=== PATIENT | female | born 1940 | race African-American/Black ===

== ENCOUNTER 2023-11-10 18:33 | Inpatient (IN) | payer OTHER ==
[~2023-11-10] VITALS: Ht 167.6 cm; Wt 72.2 kg
[2023-11-10] MEDS: SODIUM CHLORIDE 0.9% 1,000 ML IV ONE (03:40)
[2023-11-10 19:22] LABS: Basophils # (auto) 0 10 ^3/uL (0-0.2); Basophils % (auto) 0.5 % (0.0-2.0); Eosinophils # (auto) 0.1 10 ^3/uL (0-0.8); Eosinophils % (auto) 1.2 % (0.0-7.0); Hemoglobin 9.2 g/dL (12.2-16.2); Lymphocytes # (auto) 1.7 10 ^3/uL (0.4-5.4); Lymphocytes % (auto) 28.3 % (10.0-50.0); Mean Corpuscular Hemoglobin 31.3 pg (28.0-32.0); Mean Corpuscular Hgb Conc. 33.9 g/dL (32.0-36.0); Mean Corpuscular Volume 92.3 fL (80.0-100.0); Monocytes # (auto) 0.5 10 ^3/uL (0-1.3); Monocytes % (auto) 7.8 % (0.0-12.0); Neutrophils # (auto) 3.6 10 ^3/uL (1.6-8.6); Neutrophils % (auto) 62.2 % (37.0-80.0); Red Blood Cells 2.93 10^6/uL (4.0-5.20); Red Cell Distribution Width 12.9 % (11.8-14.3); White Blood Cell 5.8 10^3/uL (4.4-10.8)
[2023-11-10 19:37] LABS: INR 1.03 (0.9-1.15); Partial Thromboplastin Time 26.3 SEC (24.5-34.5); Prothrombin Time 10.9 sec (9.3-11.8)
[2023-11-10 19:41] LABS: Alanine Aminotransferase 14 U/L (7-40); Albumin 4.4 g/dL (3.2-4.8); Alkaline Phosphatase 51 U/L (46-116); Anion Gap 13 (5-15); Aspartate Aminotransferase 21 U/L (13-40); BUN/Creatinine Ratio 24.4 (10.0-20.0); Bilirubin, Total 0.3 mg/dL (0.2-1.0); Blood Urea Nitrogen 67 mg/dL (9-23); Calcium 9.9 mg/dL (8.5-10.1); Carbon Dioxide 23 mmol/L (20-30); Chloride 91 mmol/L (98-107); Glucose 91 mg/dL (74-106); Magnesium 1.7 mg/dL (1.6-2.6); Potassium 3.6 mmol/L (3.5-5.1); Sodium 127 mmol/L (136-145); Total Protein 6.9 g/dL (5.7-8.2)
[2023-11-10] MEDS ORDERED: DOCUSATE SOD 100 MG CAP PO PRN (21:00)
[2023-11-10] MEDS ORDERED: HYDROcodone-ACET 5/325MG TAB PO PRN (21:00)
[2023-11-10] MEDS ORDERED: ACETAMINOPHEN 325 MG TAB PO PRN (21:00)
[2023-11-10] MEDS ORDERED: MORPHINE SULFATE INJ 2 MG/ml SYRG IV PRN (22:15)
[2023-11-10] MEDS ORDERED: NITROGLYCERIN 0.4 MG SL TAB SL PRN (22:15)
[2023-11-11] VITALS (7 sets, daily range): BP systolic 171–189; BP diastolic 57–74; PULSE 63–96; RESP 17–19; TEMP 97.7–98.3; O2SAT 96–99
[2023-11-11] MEDS: SODIUM CHLORIDE 0.9% 500 ML IVB ONE (01:53)
[2023-11-11] MEDS: ATORVASTATIN 20 MG TAB PO SCH (05:22)
[2023-11-11] MEDS: DONEPEZIL HYDROCHLORIDE 5 MG TAB PO SCH (05:22)
[2023-11-11] MEDS: SODIUM CHLORIDE 0.9% 1,000 ML IV SCH (05:22)
[2023-11-11 06:01] LABS: Basophils # (auto) 0 10 ^3/uL (0-0.2); Basophils % (auto) 0.3 % (0.0-2.0); Eosinophils # (auto) 0 10 ^3/uL (0-0.8); Hematocrit 27.6 % (36.0-46.0); Hemoglobin 9.4 g/dL (12.2-16.2); Lymphocytes # (auto) 0.6 10 ^3/uL (0.4-5.4); Lymphocytes % (auto) 7.8 % (10.0-50.0); Mean Corpuscular Hemoglobin 31.6 pg (28.0-32.0); Mean Corpuscular Volume 93.1 fL (80.0-100.0); Monocytes # (auto) 0.4 10 ^3/uL (0-1.3); Monocytes % (auto) 5.8 % (0.0-12.0); Neutrophils # (auto) 6.4 10 ^3/uL (1.6-8.6); Neutrophils % (auto) 86.1 % (37.0-80.0); Red Blood Cells 2.96 10^6/uL (4.0-5.20); Red Cell Distribution Width 13.3 % (11.8-14.3); White Blood Cell 7.4 10^3/uL (4.4-10.8)
[2023-11-11 06:03] LABS: Alanine Aminotransferase 12 U/L (7-40); Albumin 4.5 g/dL (3.2-4.8); Alkaline Phosphatase 48 U/L (46-116); Anion Gap 16 (5-15); Aspartate Aminotransferase 23 U/L (13-40); BUN/Creatinine Ratio 22.2 (10.0-20.0); Bilirubin, Total 0.2 mg/dL (0.2-1.0); Calcium 9.9 mg/dL (8.7-10.4); Carbon Dioxide 21 mmol/L (20-30); Chloride 92 mmol/L (98-107); Glucose 113 mg/dL (74-106); Potassium 3.5 mmol/L (3.5-5.1); Sodium 129 mmol/L (136-145); Total Protein 7.4 g/dL (5.7-8.2)
[2023-11-11 06:19] LABS: Blood Urea Nitrogen 57 mg/dL (9-23)
[2023-11-11] MEDS: hydrALAZINE HCL 20 MG/ML VL IV PRN (08:02)
[2023-11-11] MEDS ORDERED: amLODIPine BESYLATE 5 MG TAB PO SCH (10:15)
[2023-11-11] MEDS ORDERED: LOSA-534 PO (11:05)
[2023-11-11] MEDS: ONDANSETRON HCL 4 MG/2 ML VIAL IV PRN (12:17)
[2023-11-11] MEDS ORDERED: FURO20TA3 PO (12:23)
[2023-11-11] MEDS ORDERED: CLON0.2T PO (12:23)
[2023-11-11] MEDS ORDERED: OMEG-20 PO (12:23)
[2023-11-11] MEDS ORDERED: ISOS1TAB28 PO (12:23)
[2023-11-11] MEDS ORDERED: QUET50TA PO (12:23)
[2023-11-11] MEDS ORDERED: MEMA1TAB5 PO (12:23)
[2023-11-11] MEDS ORDERED: ASPI1TAB20 PO (12:23)
[2023-11-11] MEDS ORDERED: DONE1TAB88 PO (12:23)
[2023-11-11] MEDS ORDERED: HYDR-4298 PO (12:23)
[2023-11-11] MEDS ORDERED: FERR324T25 PO (12:23)
[2023-11-11] MEDS ORDERED: AMLO1TAB23 PO (12:23)
[2023-11-11] MEDS ORDERED: SIMV20TA20 PO (12:23)
[2023-11-11] MEDS ORDERED: BISACODYL 10 MG RECT SUPP PR PRN (13:15)
[2023-11-11] MEDS: FAMOTIDINE (10MG/ML) 2ML VL IV SCH (13:18)
[2023-11-11] MEDS: LABETALOL HCL 5 MG/ML 4ML SYRINGE IV ONE (13:23)
[2023-11-11] MEDS: MEMANTINE HCL 5 MG TAB PO SCH (13:26)
[2023-11-11 15:27] LABS: Urine Bacteria None Seen /hpf (None Seen)
[2023-11-11 15:43] LABS: Urine Blood Negative /uL (Negative); Urine Clarity Clear (Clear); Urine Color Colorless (Yellow); Urine Hyaline Cast FEW /lpf (0 - 2); Urine Protein, UAD 2+ (Negative); Urine Urobilinogen Normal (Negative); Urine WBC 1 /hpf (0 - 5); Urine pH 5.5 (5.0-9.0)
[2023-11-11] MEDS: hydrALAZINE HCL 25 MG TAB PO SCH (16:55)
[2023-11-12] VITALS (9 sets, daily range): BP systolic 160–207; BP diastolic 66–100; PULSE 74–100; RESP 16–18; TEMP 98.1–99.6; O2SAT 92–98
[2023-11-12 06:31] LABS: Anion Gap 11 (5-15); Carbon Dioxide 27 mmol/L (20-30); Chloride 95 mmol/L (98-107); Potassium 3.1 mmol/L (3.5-5.1); Sodium 133 mmol/L (136-145)
[2023-11-12 06:32] LABS: Calcium 10.5 mg/dL (8.7-10.4)
[2023-11-12 06:37] LABS: BUN/Creatinine Ratio 16.1 (10.0-20.0); Glucose 156 mg/dL (74-106)
[2023-11-12 06:40] LABS: Blood Urea Nitrogen 34 mg/dL (9-23)
[2023-11-12] MEDS: POTASSIUM EFFERVESENT TAB 25 MEQ PO ONE (10:50)
[2023-11-12] MEDS: hydrALAZINE HCL 25 MG TAB PO SCH (13:40)
[2023-11-12] MEDS: FLEET ENEMA(ADULT) 135 ML PR ONE (14:30)
[2023-11-12 15:02] LABS: Sodium Urine 33 mmol/L (40-220)
[2023-11-12 15:09] LABS: Amphetamine Screen, Urine Neg (NEGATIVE)
[2023-11-12 15:10] LABS: Barbiturate Scree,Urine Neg (NEGATIVE); Benzodiazephine Screen, Urine Neg (NEGATIVE); Cannabinoid Screen, Urine Neg (NEGATIVE); Cocaine Screen, Urine Neg (NEGATIVE); Creatinine, Urine 60.91 mg/dL (30.0-125.0); Opiate Scree,Urine Neg (NEGATIVE); Phencyclidine Screen, Urine Neg (NEGATIVE)
[2023-11-12 15:14] LABS: Protein, Urine 403.2 mg/dL (0.0-11.9); Urine Protein/Creatinine Ratio 6.62
[2023-11-12] MEDS: amLODIPine BESYLATE 5 MG TAB PO SCH (21:35)
[2023-11-13] VITALS (8 sets, daily range): BP systolic 148–164; BP diastolic 62–71; PULSE 71–88; RESP 16–18; TEMP 98.1–99; O2SAT 92–98
[2023-11-13 06:13] LABS: Basophils # (auto) 0 10 ^3/uL (0-0.2); Basophils % (auto) 0.1 % (0.0-2.0); Eosinophils # (auto) 0 10 ^3/uL (0-0.8); Hematocrit 28.7 % (36.0-46.0); Hemoglobin 9.7 g/dL (12.2-16.2); Lymphocytes % (auto) 7.8 % (10.0-50.0); Mean Corpuscular Hemoglobin 31.3 pg (28.0-32.0); Mean Corpuscular Hgb Conc. 33.9 g/dL (32.0-36.0); Mean Corpuscular Volume 92.3 fL (80.0-100.0); Monocytes # (auto) 0.7 10 ^3/uL (0-1.3); Monocytes % (auto) 5.4 % (0.0-12.0); Neutrophils # (auto) 11.5 10 ^3/uL (1.6-8.6); Neutrophils % (auto) 86.7 % (37.0-80.0); Red Blood Cells 3.11 10^6/uL (4.0-5.20); Red Cell Distribution Width 13.3 % (11.8-14.3); White Blood Cell 13.3 10^3/uL (4.4-10.8)
[2023-11-13 06:36] LABS: Alanine Aminotransferase 10 U/L (7-40); Albumin 3.8 g/dL (3.2-4.8); Alkaline Phosphatase 56 U/L (46-116); Anion Gap 10 (5-15); Aspartate Aminotransferase 30 U/L (13-40); BUN/Creatinine Ratio 21.1 (10.0-20.0); Blood Urea Nitrogen 37 mg/dL (9-23); Calcium 9.9 mg/dL (8.7-10.4); Carbon Dioxide 28 mmol/L (20-30); Chloride 92 mmol/L (98-107); Glucose 127 mg/dL (74-106); Magnesium 1.6 mg/dL (1.6-2.6); Potassium 3.3 mmol/L (3.5-5.1); Sodium 130 mmol/L (136-145)
[2023-11-13 06:37] LABS: Bilirubin, Total 0.4 mg/dL (0.2-1.0); Total Protein 6.6 g/dL (5.7-8.2)
[2023-11-13] MEDS: POTASSIUM EFFERVESENT TAB 25 MEQ PO ONE (10:22)
[2023-11-13] MEDS: MAGNESIUM SULFATE 1GM/100ML 100 ML IV SCH (15:06)
[2023-11-14] VITALS (7 sets, daily range): BP systolic 144–156; BP diastolic 66–77; PULSE 67–96; RESP 15–83; TEMP 98.1–99.1; O2SAT 83–96
[2023-11-14 07:33] LABS: Basophils # (auto) 0 10 ^3/uL (0-0.2); Basophils % (auto) 0.1 % (0.0-2.0); Eosinophils # (auto) 0 10 ^3/uL (0-0.8); Eosinophils % (auto) 0.2 % (0.0-7.0); Hematocrit 27.2 % (36.0-46.0); Hemoglobin 9.2 g/dL (12.2-16.2); Lymphocytes # (auto) 1.2 10 ^3/uL (0.4-5.4); Lymphocytes % (auto) 11.7 % (10.0-50.0); Mean Corpuscular Hemoglobin 31.5 pg (28.0-32.0); Mean Corpuscular Volume 92.8 fL (80.0-100.0); Monocytes # (auto) 0.7 10 ^3/uL (0-1.3); Monocytes % (auto) 6.1 % (0.0-12.0); Neutrophils # (auto) 8.7 10 ^3/uL (1.6-8.6); Neutrophils % (auto) 81.9 % (37.0-80.0); Red Blood Cells 2.93 10^6/uL (4.0-5.20); Red Cell Distribution Width 13.3 % (11.8-14.3); White Blood Cell 10.7 10^3/uL (4.4-10.8)
[2023-11-14 07:48] LABS: Alkaline Phosphatase 54 U/L (46-116); Anion Gap 10 (5-15); Calcium 9.5 mg/dL (8.7-10.4); Carbon Dioxide 28 mmol/L (20-30); Chloride 94 mmol/L (98-107); Potassium 3.8 mmol/L (3.5-5.1); Sodium 132 mmol/L (136-145)
[2023-11-14 07:49] LABS: Aspartate Aminotransferase 27 U/L (13-40); BUN/Creatinine Ratio 19.2 (10.0-20.0); Blood Urea Nitrogen 43 mg/dL (9-23); Glucose 111 mg/dL (74-106); Magnesium 2.3 mg/dL (1.6-2.6)
[2023-11-14 07:50] LABS: Albumin 3.6 g/dL (3.2-4.8)
[2023-11-14 07:51] LABS: Bilirubin, Total 0.4 mg/dL (0.2-1.0); Total Protein 6.3 g/dL (5.7-8.2)
[2023-11-14 07:59] LABS: Alanine Aminotransferase 9 U/L (7-40)
== END 2023-11-14 18:11 | disposition home health service (06) | DRG 69 ==
LOC: ER 18:37 → TELE 22:14 → TELE-EAST 11-11 09:30
PROVIDERS: ADMIT Internal Medicine; ATTEND Emergency Medicine
DX: G45.9 Transient cerebral ischemic attack, unspecified (principal); G93.41 Metabolic encephalopathy; N17.0 Acute kidney failure with tubular necrosis; E87.1 Hypo-osmolality and hyponatremia; N18.4 Chronic kidney disease, stage 4 (severe); I13.0 Hypertensive heart and chronic kidney disease with heart failure and stage 1 through stage 4 chronic kidney disease, or unspecified chronic kidney disease; D63.1 Anemia in chronic kidney disease; F03.90 Unspecified dementia, unspecified severity, without behavioral disturbance, psychotic disturbance, mood disturbance, and anxiety; K59.00 Constipation, unspecified; N28.1 Cyst of kidney, acquired; I50.9 Heart failure, unspecified; E87.6 Hypokalemia; Z86.73 Personal history of transient ischemic attack (TIA), and cerebral infarction without residual deficits
CPT/HCPCS: 36415; 70450; 71045; 74018; 76775; 80048; 80053; 80307; 81001; 82306; 82570; 82607; 82728; 82962; 83540; 83550; 83735; 83935; 83970; 84100; 84156; 84300; 84443; 84484; 85025; 85610; 85730; 86850; 86900; 86901; 87040; 92610; 93005; 97110; 97116; 97163; G0378; J2405; J3490

== ENCOUNTER → 2023-11-30 | Outpatient (CLI) | payer OTHER ==
[~2023-11-30] MED LIST: AMLO1TAB23 PO; ASPI1TAB20 PO; CLON0.2T PO; DONE1TAB88 PO; FERR324T25 PO; FURO20TA3 PO; HYDR-4298 PO; ISOS1TAB28 PO; MEMA1TAB5 PO; OMEG-20 PO; QUET50TA PO; SIMV20TA20 PO
[2023-11-30 12:38] LABS: Basophils # (auto) 0 10 ^3/uL (0-0.2); Eosinophils # (auto) 0.1 10 ^3/uL (0-0.8); Hematocrit 23.6 % (36.0-46.0); Hemoglobin 7.9 g/dL (12.2-16.2); Mean Corpuscular Hgb Conc. 33.6 g/dL (32.0-36.0); Monocytes # (auto) 0.5 10 ^3/uL (0-1.3)
[2023-11-30 12:39] LABS: Basophils % (auto) 0.5 % (0.0-2.0); Eosinophils % (auto) 1.8 % (0.0-7.0); Lymphocytes # (auto) 1.2 10 ^3/uL (0.4-5.4); Lymphocytes % (auto) 20.2 % (10.0-50.0); Mean Corpuscular Hemoglobin 31.4 pg (28.0-32.0); Mean Corpuscular Volume 93.6 fL (80.0-100.0); Monocytes % (auto) 8.9 % (0.0-12.0); Neutrophils # (auto) 3.9 10 ^3/uL (1.6-8.6); Neutrophils % (auto) 68.6 % (37.0-80.0); Red Blood Cells 2.52 10^6/uL (4.0-5.20); Red Cell Distribution Width 13.4 % (11.8-14.3); White Blood Cell 5.7 10^3/uL (4.4-10.8)
[2023-11-30 13:06] LABS: Alanine Aminotransferase 16 U/L (7-40); Alkaline Phosphatase 51 U/L (46-116); Anion Gap 8 (5-15); Aspartate Aminotransferase 40 U/L (13-40); BUN/Creatinine Ratio 22.7 (10.0-20.0); Bilirubin, Total 0.3 mg/dL (0.2-1.0); Blood Urea Nitrogen 67 mg/dL (9-23); Calcium 9.7 mg/dL (8.5-10.1); Carbon Dioxide 27 mmol/L (20-30); Chloride 102 mmol/L (98-107); Glucose 134 mg/dL (74-106); Sodium 137 mmol/L (136-145); Total Protein 6.4 g/dL (5.7-8.2)
== END | disposition home or self-care (01) ==
LOC: LAB 12:26
PROVIDERS: ATTEND Internal Medicine
DX: D64.9 Anemia, unspecified (principal); R73.03 Prediabetes
CPT/HCPCS: 36415; 80053; 83036; 85025

== ENCOUNTER → 2023-12-11 | Outpatient (CLI) | payer OTHER ==
[2023-12-11 13:31] LABS: Basophils # (auto) 0 10 ^3/uL (0-0.2); Eosinophils # (auto) 0.1 10 ^3/uL (0-0.8); Hemoglobin 7.7 g/dL (12.2-16.2); Monocytes # (auto) 0.5 10 ^3/uL (0-1.3); White Blood Cell 5.8 10^3/uL (4.4-10.8)
[2023-12-11 13:32] LABS: Basophils % (auto) 0.6 % (0.0-2.0); Eosinophils % (auto) 1.6 % (0.0-7.0); Hematocrit 22.7 % (36.0-46.0); Lymphocytes # (auto) 1.4 10 ^3/uL (0.4-5.4); Lymphocytes % (auto) 23.4 % (10.0-50.0); Mean Corpuscular Hemoglobin 31.9 pg (28.0-32.0); Mean Corpuscular Hgb Conc. 33.8 g/dL (32.0-36.0); Mean Corpuscular Volume 94.6 fL (80.0-100.0); Monocytes % (auto) 7.9 % (0.0-12.0); Neutrophils # (auto) 3.9 10 ^3/uL (1.6-8.6); Neutrophils % (auto) 66.5 % (37.0-80.0); Nucleated Red Blood Cells % 0.1 %; Red Cell Distribution Width 14.5 % (11.8-14.3)
[2023-12-11 13:55] LABS: Alanine Aminotransferase 13 U/L (7-40); Albumin 3.8 g/dL (3.2-4.8); Alkaline Phosphatase 58 U/L (46-116); Anion Gap 8 (5-15); Aspartate Aminotransferase 17 U/L (13-40); BUN/Creatinine Ratio 29.1 (10.0-20.0); Bilirubin, Total 0.2 mg/dL (0.2-1.0); Blood Urea Nitrogen 64 mg/dL (9-23); Calcium 9.5 mg/dL (8.5-10.1); Carbon Dioxide 25 mmol/L (20-30); Chloride 106 mmol/L (98-107); Glucose 119 mg/dL (74-106); Sodium 139 mmol/L (136-145)
== END | disposition home or self-care (01) ==
LOC: LAB 13:20
PROVIDERS: ATTEND Internal Medicine
DX: D64.9 Anemia, unspecified (principal); E87.1 Hypo-osmolality and hyponatremia
CPT/HCPCS: 36415; 80053; 85025

== ENCOUNTER 2024-01-13 04:51 | Inpatient (IN) | payer OTHER ==
[~2024-01-13] VITALS: Ht 165.1 cm; Wt 62.0 kg
[2024-01-13 05:29] VITALS: PULSE 82; RESP 24; O2SAT 98
[2024-01-13] MEDS: SODIUM CHLORIDE 0.9% 1,000 ML IV ONE (05:40)
[2024-01-13] MEDS: ONDANSETRON HCL 4 MG/2 ML VIAL IV ONE (05:40)
[2024-01-13 06:03] LABS: Basophils # (auto) 0 10 ^3/uL (0-0.2); Basophils % (auto) 0.1 % (0.0-2.0); Eosinophils # (auto) 0 10 ^3/uL (0-0.8); Hematocrit 25.7 % (36.0-46.0); Hemoglobin 8.7 g/dL (12.2-16.2); Lymphocytes # (auto) 0.3 10 ^3/uL (0.4-5.4); Lymphocytes % (auto) 1.8 % (10.0-50.0); Mean Corpuscular Hemoglobin 31.6 pg (28.0-32.0); Mean Corpuscular Hgb Conc. 33.7 g/dL (32.0-36.0); Mean Corpuscular Volume 93.9 fL (80.0-100.0); Monocytes # (auto) 0.7 10 ^3/uL (0-1.3); Monocytes % (auto) 5.1 % (0.0-12.0); Neutrophils # (auto) 13.5 10 ^3/uL (1.6-8.6); Red Blood Cells 2.74 10^6/uL (4.0-5.20); Red Cell Distribution Width 15.9 % (11.8-14.3); White Blood Cell 14.5 10^3/uL (4.4-10.8)
[2024-01-13] MEDS: FUROSEMIDE 20 MG/2 ML VIAL IV ONE (06:16)
[2024-01-13] MEDS: methylPREDNISolone SOD SUCC 125 MG/2 ML VL IV ONE (06:17)
[2024-01-13 06:24] LABS: Alanine Aminotransferase 15 U/L (7-40); Alkaline Phosphatase 56 U/L (46-116); Anion Gap 20 (5-15); Aspartate Aminotransferase 22 U/L (13-40); BUN/Creatinine Ratio 9.8 (10.0-20.0); Bilirubin, Total 0.4 mg/dL (0.2-1.0); Blood Urea Nitrogen 18 mg/dL (9-23); Calcium 9.4 mg/dL (8.7-10.4); Carbon Dioxide 11 mmol/L (20-30); Chloride 93 mmol/L (98-107); Glucose 183 mg/dL (74-106); Potassium 3.3 mmol/L (3.5-5.1); Sodium 124 mmol/L (136-145); Total Protein 7.1 g/dL (5.7-8.2)
[2024-01-13] MEDS: ALBUTEROL SULF 2.5 MG/0.5ML(0.5%) NEB SOLN NEB ONE (06:25)
[2024-01-13] MEDS: POTASSIUM EFFERVESENT TAB 25 MEQ PO ONE (06:42)
[2024-01-13] MEDS: cloNIDine HCL 0.1 MG TAB PO ONE (07:08)
[2024-01-13 07:26] VITALS: O2SAT 93
[2024-01-13 08:45] LABS: Urine Bacteria FEW /hpf (None Seen); Urine Blood Negative /uL (Negative); Urine Clarity Clear (Clear); Urine Color Yellow (Yellow); Urine Hyaline Cast FEW /lpf (0 - 2); Urine Protein, UAD 1+ (Negative); Urine Specific Gravity 1.006 (1.001-1.035); Urine Urobilinogen Normal (Negative); Urine WBC 1 /hpf (0 - 5)
[2024-01-13] MEDS: LABETALOL HCL 20 MG/4 ML VL IV ONE (09:09)
[2024-01-13] MEDS ORDERED: cefTRIAXone 1GM/50ML D5W 50 ML IV ONE (09:30)
[2024-01-13] MEDS: QUEtiapine FUMARATE 25 MG TAB PO SCH (10:00)
[2024-01-13] MEDS ORDERED: ENOXAPARIN SOD 40 MG/0.4 ML SYRINGE SC SCH (10:00)
[2024-01-13] MEDS: POTASSIUM CHL 20 Meq TABLET PO SCH (10:00)
[2024-01-13] MEDS: cloNIDine HCL 0.1 MG TAB PO SCH (10:30)
[2024-01-13] MEDS: ASPirin-EC 81 mg tab PO SCH (10:42)
[2024-01-13] MEDS: ISOSORBIDE MONONITRATE ER 60 MG TAB PO SCH (10:44)
[2024-01-13] MEDS: MEMANTINE HCL 5 MG TAB PO SCH (10:45)
[2024-01-13] MEDS: DONEPEZIL HYDROCHLORIDE 5 MG TAB PO SCH (10:45)
[2024-01-13] MEDS: ENOXAPARIN SOD 30 MG/0.3 ML SYRINGE SC SCH (10:46)
[2024-01-13] MEDS: FUROSEMIDE 20 MG/2 ML VIAL IV SCH (10:47)
[2024-01-13] MEDS: AZITHROMYCIN 500MG/ 250ML 250 ML IV SCH (10:47)
[2024-01-13] MEDS: amLODIPine BESYLATE 5 MG TAB PO SCH (10:48)
[2024-01-13 11:23] LABS: Magnesium 1.7 mg/dL (1.6-2.6)
[2024-01-13 11:27] LABS: COVID19 ANTIGEN SOFIA FIA NEGATIVE (NEGATIVE)
[2024-01-13] MEDS ORDERED: cloNIDine HCL 0.1 MG TAB PO PRN (12:30)
[2024-01-13] MEDS: cefTRIAXone 1GM/50ML D5W 50 ML IV ONE (12:52)
[2024-01-13] MEDS: hydrALAZINE HCL 25 MG TAB PO SCH (14:47)
[2024-01-13] MEDS: FERROUS SULFATE 325mg EC TAB PO SCH (14:48)
[2024-01-13] MEDS ORDERED: ATORVASTATIN 20 MG TAB PO SCH (18:00)
[2024-01-13] MEDS: ATORVASTATIN 20 MG TAB PO SCH (18:00)
[2024-01-13 20:44] VITALS: O2SAT 97
[2024-01-13] MEDS: METOPROLOL TARTRATE 25 MG TAB PO SCH (22:29)
[2024-01-14] VITALS (7 sets, daily range): BP systolic 153–156; BP diastolic 66; PULSE 69–72; RESP 15–18; TEMP 98.3–98.6; O2SAT 92–100
[2024-01-14] MEDS: hydrALAZINE HCL 20 MG/ML VL IV PRN (02:54)
[2024-01-14 07:13] LABS: Basophils # (auto) 0 10 ^3/uL (0-0.2); Basophils % (auto) 0.1 % (0.0-2.0); Eosinophils # (auto) 0 10 ^3/uL (0-0.8); Hematocrit 24.8 % (36.0-46.0); Hemoglobin 8.6 g/dL (12.2-16.2); Lymphocytes # (auto) 0.4 10 ^3/uL (0.4-5.4); Lymphocytes % (auto) 2.2 % (10.0-50.0); Mean Corpuscular Hemoglobin 31.8 pg (28.0-32.0); Mean Corpuscular Hgb Conc. 34.7 g/dL (32.0-36.0); Mean Corpuscular Volume 91.7 fL (80.0-100.0); Monocytes # (auto) 0.9 10 ^3/uL (0-1.3); Neutrophils # (auto) 17.4 10 ^3/uL (1.6-8.6); Neutrophils % (auto) 92.7 % (37.0-80.0); Red Cell Distribution Width 15.9 % (11.8-14.3); White Blood Cell 18.8 10^3/uL (4.4-10.8)
[2024-01-14 07:41] LABS: Alanine Aminotransferase 13 U/L (7-40); Albumin 4.2 g/dL (3.2-4.8); Alkaline Phosphatase 76 U/L (46-116); Anion Gap 11 (5-15); Aspartate Aminotransferase 23 U/L (13-40); BUN/Creatinine Ratio 16.2 (10.0-20.0); Bilirubin, Total 0.2 mg/dL (0.2-1.0); Calcium 9.7 mg/dL (8.7-10.4); Carbon Dioxide 23 mmol/L (20-30); Chloride 93 mmol/L (98-107); Glucose 177 mg/dL (74-106); Potassium 4.2 mmol/L (3.5-5.1); Sodium 127 mmol/L (136-145); Total Protein 6.9 g/dL (5.7-8.2)
[2024-01-14 07:42] LABS: Blood Urea Nitrogen 28 mg/dL (9-23)
[2024-01-14] MEDS: CARVEDILOL 3.125 MG TAB PO SCH (08:25)
[2024-01-14] MEDS ORDERED: cefTRIAXone 1GM/50ML D5W 50 ML IV SCH (09:00)
[2024-01-14] MEDS: PIPERACILLIN-TAZOB 3.375GM 100 ML IV SCH ×2 (09:39→17:57)
[2024-01-14] MEDS: ONDANSETRON HCL 4 MG/2 ML VIAL IV PRN (11:29)
[2024-01-14] MEDS: FUROSEMIDE 20 MG/2 ML VIAL IV SCH (11:29)
[2024-01-14 12:23] LABS: % Iron Saturation 32.1 % (15-50)
[2024-01-14] MEDS ORDERED: HYDR25TA4 PO (14:00)
[2024-01-14] MEDS: NIFEdipine ER 30 MG TAB PO SCH (17:58)
[2024-01-14] MEDS: HEPARIN SODIUM (PORCINE) 5000 UNITS/ML 1ML VIAL SC SCH (21:36)
[2024-01-15] VITALS (8 sets, daily range): BP systolic 144–167; BP diastolic 60–72; PULSE 63–86; RESP 16–18; TEMP 97.7–98.5; O2SAT 91–100
[2024-01-15 06:40] LABS: Basophils # (auto) 0 10 ^3/uL (0-0.2); Basophils % (auto) 0.1 % (0.0-2.0); Eosinophils # (auto) 0 10 ^3/uL (0-0.8); Eosinophils % (auto) 0.2 % (0.0-7.0); Mean Corpuscular Hemoglobin 31.4 pg (28.0-32.0); Monocytes # (auto) 0.7 10 ^3/uL (0-1.3)
[2024-01-15 06:42] LABS: Hematocrit 23.4 % (36.0-46.0); Hemoglobin 8.1 g/dL (12.2-16.2); Lymphocytes % (auto) 7.5 % (10.0-50.0); Mean Corpuscular Hgb Conc. 34.4 g/dL (32.0-36.0); Mean Corpuscular Volume 91.2 fL (80.0-100.0); Monocytes % (auto) 5.4 % (0.0-12.0); Neutrophils # (auto) 11.5 10 ^3/uL (1.6-8.6); Neutrophils % (auto) 86.8 % (37.0-80.0); Red Blood Cells 2.57 10^6/uL (4.0-5.20); Red Cell Distribution Width 15.9 % (11.8-14.3); White Blood Cell 13.3 10^3/uL (4.4-10.8)
[2024-01-15 06:47] LABS: Anion Gap 8 (5-15); Carbon Dioxide 25 mmol/L (20-30); Chloride 98 mmol/L (98-107); Potassium 3.7 mmol/L (3.5-5.1); Sodium 131 mmol/L (136-145)
[2024-01-15 06:53] LABS: BUN/Creatinine Ratio 14.9 (10.0-20.0); Blood Urea Nitrogen 26 mg/dL (9-23); Glucose 138 mg/dL (74-106)
[2024-01-15] MEDS: ISOSORBIDE MONONITRATE ER 60 MG TAB PO SCH (10:00)
[2024-01-15] MEDS: HALOPERIDOL LACTATE 5 MG/ML INJ VIAL IM ONE (14:01)
[2024-01-15] MEDS: AZITHROMYCIN 500MG/ 250ML 250 ML IV SCH (16:02)
[2024-01-15] MEDS: QUEtiapine FUMARATE 25 MG TAB PO SCH (22:00)
[2024-01-16] VITALS (9 sets, daily range): BP systolic 141–183; BP diastolic 64–84; PULSE 18–96; RESP 18–20; TEMP 98–98.8; O2SAT 92–96
[2024-01-16 02:54] LABS: Rapid Influenza A Negative (Negative); Rapid Influenza B Negative (Negative)
[2024-01-16 07:28] LABS: Basophils # (auto) 0 10 ^3/uL (0-0.2); Basophils % (auto) 0.3 % (0.0-2.0); Eosinophils # (auto) 0.1 10 ^3/uL (0-0.8); Eosinophils % (auto) 0.5 % (0.0-7.0); Hematocrit 27.6 % (36.0-46.0); Hemoglobin 9.4 g/dL (12.2-16.2); Lymphocytes # (auto) 1.6 10 ^3/uL (0.4-5.4); Lymphocytes % (auto) 14.6 % (10.0-50.0); Mean Corpuscular Hemoglobin 31.2 pg (28.0-32.0); Mean Corpuscular Hgb Conc. 34.2 g/dL (32.0-36.0); Mean Corpuscular Volume 91.5 fL (80.0-100.0); Monocytes # (auto) 0.7 10 ^3/uL (0-1.3); Monocytes % (auto) 6.7 % (0.0-12.0); Neutrophils # (auto) 8.4 10 ^3/uL (1.6-8.6); Neutrophils % (auto) 77.9 % (37.0-80.0); Nucleated Red Blood Cells % 0.1 %; Red Blood Cells 3.02 10^6/uL (4.0-5.20); White Blood Cell 10.8 10^3/uL (4.4-10.8)
[2024-01-16 07:48] LABS: Anion Gap 10 (5-15); Calcium 9.4 mg/dL (8.7-10.4); Carbon Dioxide 27 mmol/L (20-30); Chloride 99 mmol/L (98-107); Potassium 3.2 mmol/L (3.5-5.1); Sodium 136 mmol/L (136-145)
[2024-01-16 07:54] LABS: BUN/Creatinine Ratio 12.7 (10.0-20.0); Blood Urea Nitrogen 22 mg/dL (9-23); Glucose 132 mg/dL (74-106)
[2024-01-16] MEDS: POTASSIUM CHL 20MEQ/100ML 100 ML IV ONE (09:04)
[2024-01-16] MEDS ORDERED: ACETAMINOPHEN 325 MG RECT SUPP PR PRN (12:00)
[2024-01-16] MEDS: MAGNESIUM SULFATE 1GM/100ML 100 ML IV ONE (13:08)
[2024-01-16] MEDS: NITROGLYCERIN 0.4MG/HR TOPICAL PATCH TD ONE (13:09)
[2024-01-16] MEDS: amLODIPine BESYLATE 5 MG TAB PO ONE (14:45)
[2024-01-16] MEDS: LOSARTAN POTASSIUM 50 MG TAB PO ONE (14:45)
[2024-01-16] MEDS ORDERED: CLINIMIX PER PHARMACY 0 ML IV SCH (17:45)
[2024-01-16] MEDS: LIDOCAINE VISCOUS 2% 15ML UD MT ONE (17:45)
[2024-01-16] MEDS ORDERED: DEXTROSE (50%) 50ML SYRG IV SCH (18:00)
[2024-01-16] MEDS: ACCU-CHEK COMFORT CURVE STRIP VI SCH (19:39)
[2024-01-16] MEDS: InsuLIN REG 1unit/0.01ml Soln (100units/ml) SC SCH (19:51)
[2024-01-17] VITALS (8 sets, daily range): BP systolic 145–200; BP diastolic 53–87; PULSE 71–85; RESP 17–18; TEMP 98.2–98.9; O2SAT 93–96
[2024-01-17] MEDS: AMINO ACID INFUSION IN D10W 1,000 ML IV SCH (00:16)
[2024-01-17] MEDS: ENALAPRILAT 1.25 MG/ML-1ML VIAL IV PRN (01:19)
[2024-01-17 07:25] LABS: Basophils # (auto) 0 10 ^3/uL (0-0.2); Basophils % (auto) 0.3 % (0.0-2.0); Eosinophils # (auto) 0.1 10 ^3/uL (0-0.8); Eosinophils % (auto) 0.7 % (0.0-7.0); Hematocrit 26.5 % (36.0-46.0); Hemoglobin 9.2 g/dL (12.2-16.2); Lymphocytes # (auto) 1.3 10 ^3/uL (0.4-5.4); Lymphocytes % (auto) 15.6 % (10.0-50.0); Mean Corpuscular Hemoglobin 31.6 pg (28.0-32.0); Mean Corpuscular Hgb Conc. 34.6 g/dL (32.0-36.0); Mean Corpuscular Volume 91.4 fL (80.0-100.0); Monocytes # (auto) 0.5 10 ^3/uL (0-1.3); Monocytes % (auto) 6.6 % (0.0-12.0); Neutrophils # (auto) 6.4 10 ^3/uL (1.6-8.6); Neutrophils % (auto) 76.8 % (37.0-80.0); Nucleated Red Blood Cells % 0.1 %; Red Cell Distribution Width 15.9 % (11.8-14.3); White Blood Cell 8.3 10^3/uL (4.4-10.8)
[2024-01-17 07:49] LABS: Alanine Aminotransferase 11 U/L (7-40); Albumin 3.7 g/dL (3.2-4.8); Alkaline Phosphatase 46 U/L (46-116); Anion Gap 9 (5-15); Aspartate Aminotransferase 14 U/L (13-40); BUN/Creatinine Ratio 13.2 (10.0-20.0); Bilirubin, Total 0.4 mg/dL (0.2-1.0); Blood Urea Nitrogen 23 mg/dL (9-23); Calcium 9.5 mg/dL (8.7-10.4); Carbon Dioxide 28 mmol/L (20-30); Chloride 100 mmol/L (98-107); Glucose 134 mg/dL (74-106); Magnesium 1.7 mg/dL (1.6-2.6); Phosphorus 2.3 mg/dL (2.4-5.1); Potassium 3.1 mmol/L (3.5-5.1); Sodium 137 mmol/L (136-145); Total Protein 6.2 g/dL (5.7-8.2)
[2024-01-17] MEDS: amLODIPine BESYLATE 5 MG TAB PO SCH (10:41)
[2024-01-17] MEDS: LOSARTAN POTASSIUM 50 MG TAB PO SCH (10:42)
[2024-01-17] MEDS: NITROGLYCERIN 0.4MG/HR TOPICAL PATCH TD SCH (10:43)
[2024-01-17] MEDS: POTASSIUM CHL 20MEQ/100ML 100 ML IV SCH (10:47)
[2024-01-17] MEDS: MAGNESIUM SULFATE 1GM/100ML 100 ML IV ONE (11:00)
[2024-01-17] MEDS ORDERED: AZIT-43 PO (13:13)
[2024-01-17] MEDS ORDERED: LEVO750T40 PO (13:13)
[2024-01-17] MEDS: SODIUM PHOSPHATES 20 MEQ in SODIUM CHL 0.9% 100 ML IV ONE (16:31)
[2024-01-17] MEDS: CARVEDILOL 12.5 MG TAB PO ONE (17:14)
[2024-01-17] MEDS: CARVEDILOL 12.5 MG TAB PO SCH (22:00)
[2024-01-17] MEDS: LABETALOL HCL 20 MG/4 ML VL IV ONE (22:30)
[2024-01-18] MEDS: LABETALOL HCL 20 MG/4 ML VL IV ONE (00:03)
[2024-01-18 01:00] VITALS: BP 165/67; PULSE 81; RESP 16; TEMP 98.9; O2SAT 95
[2024-01-18 05:00] VITALS: BP 189/93; PULSE 71; RESP 17; TEMP 98.7; O2SAT 95
[2024-01-18 08:00] VITALS: PULSE 65
[2024-01-18 08:07] VITALS: BP 158/62; PULSE 89; RESP 18; TEMP 97.8; O2SAT 96
[2024-01-18] MEDS: NIFEdipine ER 30 MG TAB PO SCH (10:00)
[2024-01-18 10:57] VITALS: BP 148/78; PULSE 77; RESP 16; TEMP 98.7; O2SAT 98
== END 2024-01-18 11:30 | disposition home or self-care (01) | DRG 871 ==
LOC: ER 04:51 → TELE 09:40 → ER 09:40 → TELE-CENTR 01-14 17:01
PROVIDERS: ADMIT Student in an Organized Health Care Education/Training Program; ATTEND Student in an Organized Health Care Education/Training Program
DX: A41.9 Sepsis, unspecified organism (principal); I50.43 Acute on chronic combined systolic (congestive) and diastolic (congestive) heart failure; J69.0 Pneumonitis due to inhalation of food and vomit; J96.01 Acute respiratory failure with hypoxia; I13.0 Hypertensive heart and chronic kidney disease with heart failure and stage 1 through stage 4 chronic kidney disease, or unspecified chronic kidney disease; E87.1 Hypo-osmolality and hyponatremia; N18.4 Chronic kidney disease, stage 4 (severe); N17.9 Acute kidney failure, unspecified; Z20.822 Contact with and (suspected) exposure to COVID-19; E87.6 Hypokalemia; F03.90 Unspecified dementia, unspecified severity, without behavioral disturbance, psychotic disturbance, mood disturbance, and anxiety; E78.5 Hyperlipidemia, unspecified; I16.0 Hypertensive urgency; J45.909 Unspecified asthma, uncomplicated; D63.1 Anemia in chronic kidney disease; Z86.73 Personal history of transient ischemic attack (TIA), and cerebral infarction without residual deficits
CPT/HCPCS: 36415; 70450; 71045; 78582; 80048; 80053; 80061; 81001; 82728; 82962; 83540; 83550; 83735; 83880; 83935; 84100; 84443; 85025; 85379; 87040; 87070; 87081; 87086; 87205; 87426; 87804; 92523; 92610; 93005; 93970; 94640; 97163; G0378; J1815; J2405; J2543; J3480

== ENCOUNTER 2024-02-14 13:03 | Inpatient (IN) | payer OTHER ==
[~2024-02-14] VITALS: Ht 165.1 cm; Wt 62.0 kg
[~2024-02-14 13:03] MED LIST changes: +AZIT-43 PO; -HYDR-4298 PO; +HYDR100T10 PO; +HYDR25TA4 PO; +LEVO750T40 PO
[2024-02-14 13:43] LABS: Urine Bacteria None Seen /hpf (None Seen)
[2024-02-14 13:53] LABS: Basophils # (auto) 0 10 ^3/uL (0-0.2); Basophils % (auto) 0.3 % (0.0-2.0); Eosinophils # (auto) 0.3 10 ^3/uL (0-0.8); Eosinophils % (auto) 3.5 % (0.0-7.0); Hematocrit 22.9 % (36.0-46.0); Hemoglobin 7.8 g/dL (12.2-16.2); Lymphocytes # (auto) 1.9 10 ^3/uL (0.4-5.4); Lymphocytes % (auto) 20.9 % (10.0-50.0); Mean Corpuscular Hemoglobin 32.2 pg (28.0-32.0); Mean Corpuscular Hgb Conc. 34.1 g/dL (32.0-36.0); Mean Corpuscular Volume 94.5 fL (80.0-100.0); Monocytes # (auto) 0.6 10 ^3/uL (0-1.3); Monocytes % (auto) 7.2 % (0.0-12.0); Neutrophils # (auto) 6.1 10 ^3/uL (1.6-8.6); Neutrophils % (auto) 68.1 % (37.0-80.0); Platelet Count (auto) 247 10^3/uL (140-450); Red Blood Cells 2.43 10^6/uL (4.0-5.20)
[2024-02-14 14:11] LABS: Urine Blood Negative /uL (Negative); Urine Clarity Clear (Clear); Urine Color Colorless (Yellow); Urine Hyaline Cast FEW /lpf (0 - 2); Urine Protein, UAD Negative (Negative); Urine Specific Gravity 1.008 (1.001-1.035); Urine Urobilinogen Normal (Negative); Urine WBC <1 /hpf (0 - 5)
[2024-02-14 14:25] LABS: Alanine Aminotransferase 20 U/L (7-40); Albumin 3.9 g/dL (3.2-4.8); Alkaline Phosphatase 50 U/L (46-116); Anion Gap 8 (5-15); Aspartate Aminotransferase 18 U/L (13-40); BUN/Creatinine Ratio 28.2 (10.0-20.0); Bilirubin, Total 0.2 mg/dL (0.2-1.0); Blood Urea Nitrogen 66 mg/dL (9-23); Calcium 9.8 mg/dL (8.7-10.4); Carbon Dioxide 26 mmol/L (20-30); Chloride 106 mmol/L (98-107); Glucose 115 mg/dL (74-106); Sodium 140 mmol/L (136-145); Total Protein 6.7 g/dL (5.7-8.2)
[2024-02-14] MEDS ORDERED: HYDROcodone-ACET 5/325MG TAB PO PRN (18:45)
[2024-02-14] MEDS ORDERED: DOCUSATE SOD 100 MG CAP PO PRN (18:45)
[2024-02-14] MEDS ORDERED: ACETAMINOPHEN 325 MG TAB PO PRN (18:45)
[2024-02-14] MEDS ORDERED: HYDROmorphone HCL 2 MG/ML VL/or syr IV PRN (18:45)
[2024-02-14] MEDS: LACTATED RINGER'S 1,000 ML IV ONE (19:00)
[2024-02-14] MEDS: SODIUM CHLOR 0.9% PF (SALINE LOCK) 10ML VIAL/SYR IV SCH (22:00)
[2024-02-14 23:27] VITALS: BP 162/70; PULSE 70; RESP 14; TEMP 98; O2SAT 94
[2024-02-15] VITALS (9 sets, daily range): BP systolic 139–164; BP diastolic 56–70; PULSE 56–76; RESP 14–20; TEMP 97.7–99.1; O2SAT 94–100
[2024-02-15] MEDS: MEMANTINE HCL 5 MG TAB PO SCH (01:11)
[2024-02-15 05:40] LABS: Basophils # (auto) 0 10 ^3/uL (0-0.2); Monocytes # (auto) 0.6 10 ^3/uL (0-1.3)
[2024-02-15 05:41] LABS: Basophils % (auto) 0.4 % (0.0-2.0); Eosinophils # (auto) 0.4 10 ^3/uL (0-0.8); Eosinophils % (auto) 4.7 % (0.0-7.0); Hematocrit 21.6 % (36.0-46.0); Hemoglobin 7.4 g/dL (12.2-16.2); Lymphocytes # (auto) 1.7 10 ^3/uL (0.4-5.4); Lymphocytes % (auto) 21.7 % (10.0-50.0); Mean Corpuscular Hemoglobin 32.1 pg (28.0-32.0); Mean Corpuscular Volume 94.3 fL (80.0-100.0); Monocytes % (auto) 7.4 % (0.0-12.0); Neutrophils % (auto) 65.8 % (37.0-80.0); Nucleated Red Blood Cells % 0.1 %; Platelet Count (auto) 216 10^3/uL (140-450); Red Blood Cells 2.29 10^6/uL (4.0-5.20); Red Cell Distribution Width 16.4 % (11.8-14.3); White Blood Cell 7.6 10^3/uL (4.4-10.8)
[2024-02-15 05:52] LABS: Alanine Aminotransferase 17 U/L (7-40); Albumin 3.5 g/dL (3.2-4.8); Alkaline Phosphatase 43 U/L (46-116); Anion Gap 8 (5-15); Aspartate Aminotransferase 15 U/L (13-40); BUN/Creatinine Ratio 26.9 (10.0-20.0); Blood Urea Nitrogen 57 mg/dL (9-23); Calcium 9.4 mg/dL (8.7-10.4); Carbon Dioxide 25 mmol/L (20-30); Chloride 107 mmol/L (98-107); Glucose 97 mg/dL (74-106); Magnesium 2.1 mg/dL (1.6-2.6); Potassium 4.1 mmol/L (3.5-5.1); Sodium 140 mmol/L (136-145)
[2024-02-15 05:53] LABS: Bilirubin, Total 0.3 mg/dL (0.2-1.0); Total Protein 6.2 g/dL (5.7-8.2)
[2024-02-15] MEDS: QUEtiapine FUMARATE 25 MG TAB PO SCH (09:51)
[2024-02-15] MEDS: amLODIPine BESYLATE 5 MG TAB PO SCH (09:51)
[2024-02-15] MEDS: ASPirin-EC 81 mg tab PO SCH (09:52)
[2024-02-15] MEDS: FUROSEMIDE 20 MG TAB PO SCH (09:52)
[2024-02-15] MEDS ORDERED: PATIENTS OWN MEDICATION (Donepezil Hydrochloride (Donepezil Hcl) 1 TAB) PO SCH (10:00)
[2024-02-15] MEDS ORDERED: PATIENTS OWN MEDICATION (Isosorbide Mononitrate (Isosorbide Mononitrate Er) 1 TAB) PO SCH (10:00)
[2024-02-15] MEDS ORDERED: QUEtiapine FUMARATE 25 MG TAB PO SCH (10:00)
[2024-02-15] MEDS ORDERED: QUETIAPINE FUMERATE PO SCH (10:00)
[2024-02-15] MEDS ORDERED: PATIENTS OWN MEDICATION (Amlodipine Besylate 1 TAB) PO SCH (10:00)
[2024-02-15 10:57] LABS: % Iron Saturation 18.9 % (15-50)
[2024-02-15] MEDS ORDERED: QUET1TAB11 PO (15:08)
[2024-02-15 15:15] LABS: Folate (Folic Acid) 5.32 ng/mL (>5.38)
[2024-02-15] MEDS ORDERED: PATIENTS OWN MEDICATION (Simvastatin 1 TAB) PO SCH (18:00)
[2024-02-15] MEDS: ATORVASTATIN 20 MG TAB PO SCH (21:55)
[2024-02-15] MEDS: DONEPEZIL HYDROCHLORIDE 5 MG TAB PO SCH (21:56)
[2024-02-16 01:00] VITALS: BP 167/58; PULSE 69; RESP 15; TEMP 98.1; O2SAT 96
[2024-02-16 05:00] VITALS: BP 172/63; PULSE 63; RESP 16; TEMP 98.2; O2SAT 95
[2024-02-16 06:48] LABS: Basophils # (auto) 0 10 ^3/uL (0-0.2); Basophils % (auto) 0.5 % (0.0-2.0); Eosinophils # (auto) 0.2 10 ^3/uL (0-0.8); Eosinophils % (auto) 2.7 % (0.0-7.0); Hematocrit 27.3 % (36.0-46.0); Hemoglobin 9.2 g/dL (12.2-16.2); Lymphocytes % (auto) 23.3 % (10.0-50.0); Mean Corpuscular Hemoglobin 31.7 pg (28.0-32.0); Mean Corpuscular Hgb Conc. 33.7 g/dL (32.0-36.0); Mean Corpuscular Volume 93.9 fL (80.0-100.0); Monocytes # (auto) 0.7 10 ^3/uL (0-1.3); Neutrophils # (auto) 5.6 10 ^3/uL (1.6-8.6); Neutrophils % (auto) 65.5 % (37.0-80.0); Platelet Count (auto) 260 10^3/uL (140-450); Red Blood Cells 2.91 10^6/uL (4.0-5.20); Red Cell Distribution Width 15.8 % (11.8-14.3); White Blood Cell 8.5 10^3/uL (4.4-10.8)
[2024-02-16 07:17] LABS: Alanine Aminotransferase 14 U/L (7-40); Albumin 4.2 g/dL (3.2-4.8); Alkaline Phosphatase 49 U/L (46-116); Anion Gap 9 (5-15); Aspartate Aminotransferase 19 U/L (13-40); BUN/Creatinine Ratio 25.1 (10.0-20.0); Blood Urea Nitrogen 48 mg/dL (9-23); Calcium 9.7 mg/dL (8.7-10.4); Carbon Dioxide 26 mmol/L (20-30); Chloride 106 mmol/L (98-107); Glucose 118 mg/dL (74-106); Magnesium 2.1 mg/dL (1.6-2.6); Potassium 3.8 mmol/L (3.5-5.1); Sodium 141 mmol/L (136-145)
[2024-02-16 07:18] LABS: Bilirubin, Total 0.3 mg/dL (0.2-1.0)
[2024-02-16] MEDS ORDERED: hydrALAZINE HCL 20 MG/ML VL IV PRN (08:30)
[2024-02-16 09:00] VITALS: BP 175/69; PULSE 72; RESP 15; TEMP 98.3; O2SAT 94
[2024-02-16] MEDS: ISOSORBIDE MONONITRATE ER 60 MG TAB PO SCH (10:00)
[2024-02-16] MEDS: FUROSEMIDE 40 MG/4 ML VIAL IV SCH (10:01)
[2024-02-16] MEDS: ONDANSETRON HCL 4 MG/2 ML VIAL IV PRN (10:18)
[2024-02-16 13:00] VITALS: BP 143/71; PULSE 62; RESP 15; TEMP 98.5; O2SAT 98
[2024-02-16 17:00] VITALS: BP 132/65; PULSE 80; RESP 15; TEMP 98.1; O2SAT 94
[2024-02-16 22:00] VITALS: BP 155/68; PULSE 78; RESP 17; TEMP 98.4; O2SAT 97
[2024-02-16] MEDS ORDERED: cloNIDine HCL 0.1 MG TAB PO SCH (22:00)
[2024-02-16] MEDS: hydrALAZINE HCL 10 MG TAB PO SCH (22:06)
[2024-02-17 01:00] VITALS: BP 150/75; PULSE 80; RESP 17; TEMP 98.8; O2SAT 97
[2024-02-17 05:00] VITALS: BP 134/69; PULSE 81; RESP 17; TEMP 98.3; O2SAT 98
[2024-02-17 06:45] LABS: Basophils # (auto) 0 10 ^3/uL (0-0.2); Basophils % (auto) 0.2 % (0.0-2.0); Eosinophils # (auto) 0.2 10 ^3/uL (0-0.8); Eosinophils % (auto) 2.2 % (0.0-7.0); Hematocrit 24.9 % (36.0-46.0); Hemoglobin 8.6 g/dL (12.2-16.2); Lymphocytes # (auto) 1.8 10 ^3/uL (0.4-5.4); Lymphocytes % (auto) 21.5 % (10.0-50.0); Mean Corpuscular Hemoglobin 32.3 pg (28.0-32.0); Mean Corpuscular Hgb Conc. 34.5 g/dL (32.0-36.0); Mean Corpuscular Volume 93.6 fL (80.0-100.0); Monocytes # (auto) 0.7 10 ^3/uL (0-1.3); Monocytes % (auto) 8.6 % (0.0-12.0); Neutrophils # (auto) 5.5 10 ^3/uL (1.6-8.6); Neutrophils % (auto) 67.5 % (37.0-80.0); Nucleated Red Blood Cells % 0.1 %; Platelet Count (auto) 255 10^3/uL (140-450); Red Blood Cells 2.66 10^6/uL (4.0-5.20); Red Cell Distribution Width 16.4 % (11.8-14.3); White Blood Cell 8.2 10^3/uL (4.4-10.8)
[2024-02-17 07:04] LABS: Alanine Aminotransferase 16 U/L (7-40); Albumin 3.8 g/dL (3.2-4.8); Alkaline Phosphatase 44 U/L (46-116); Anion Gap 9 (5-15); Aspartate Aminotransferase 28 U/L (13-40); BUN/Creatinine Ratio 20.4 (10.0-20.0); Blood Urea Nitrogen 46 mg/dL (9-23); Calcium 9.1 mg/dL (8.7-10.4); Carbon Dioxide 28 mmol/L (20-30); Chloride 106 mmol/L (98-107); Glucose 92 mg/dL (74-106); Potassium 3.9 mmol/L (3.5-5.1); Sodium 143 mmol/L (136-145)
[2024-02-17 07:05] LABS: Bilirubin, Total 0.3 mg/dL (0.2-1.0); Total Protein 6.3 g/dL (5.7-8.2)
[2024-02-17 08:36] VITALS: RESP 15; TEMP 98.4; O2SAT 98
[2024-02-17 09:20] VITALS: BP 174/82; PULSE 89; RESP 17
[2024-02-17] MEDS: FUROSEMIDE 40 MG TAB PO ONE (09:28)
[2024-02-17 13:47] VITALS: TEMP 36.9
== END 2024-02-17 14:15 | disposition home or self-care (01) | DRG 291 ==
LOC: ER 13:03 → OVERFLOW 18:54 → EAST 23:27
PROVIDERS: ADMIT Internal Medicine; ATTEND Internal Medicine
DX: I13.0 Hypertensive heart and chronic kidney disease with heart failure and stage 1 through stage 4 chronic kidney disease, or unspecified chronic kidney disease (principal); I50.23 Acute on chronic systolic (congestive) heart failure; N17.9 Acute kidney failure, unspecified; N18.30 Chronic kidney disease, stage 3 unspecified; E78.5 Hyperlipidemia, unspecified; F03.90 Unspecified dementia, unspecified severity, without behavioral disturbance, psychotic disturbance, mood disturbance, and anxiety; D63.8 Anemia in other chronic diseases classified elsewhere; Z86.73 Personal history of transient ischemic attack (TIA), and cerebral infarction without residual deficits; Z79.899 Other long term (current) drug therapy
CPT/HCPCS: 36415; 71045; 76775; 80053; 81001; 82306; 82607; 82746; 83540; 83550; 83735; 83880; 83970; 84100; 84484; 85025; 87081; 93005; 93306; 99291; G0378; J2405

== ENCOUNTER → 2024-02-26 | Outpatient (CLI) | payer OTHER ==
[~2024-02-26] MED LIST changes: -AZIT-43 PO; -LEVO750T40 PO; +QUET1TAB11 PO; -QUET50TA PO
[2024-02-26 11:58] LABS: Alanine Aminotransferase 11 U/L (7-40); Albumin 3.8 g/dL (3.2-4.8); Alkaline Phosphatase 54 U/L (46-116); Anion Gap 8 (5-15); Aspartate Aminotransferase 17 U/L (13-40); BUN/Creatinine Ratio 20.4 (10.0-20.0); Blood Urea Nitrogen 51 mg/dL (9-23); Calcium 9.2 mg/dL (8.7-10.4); Carbon Dioxide 26 mmol/L (20-30); Chloride 102 mmol/L (98-107); Glucose 147 mg/dL (74-106); Potassium 4.4 mmol/L (3.5-5.1); Sodium 136 mmol/L (136-145)
[2024-02-26 11:59] LABS: Bilirubin, Total 0.2 mg/dL (0.2-1.0); Total Protein 6.5 g/dL (5.7-8.2)
== END | disposition home or self-care (01) ==
LOC: LAB 10:25
PROVIDERS: ATTEND Student in an Organized Health Care Education/Training Program
DX: I11.0 Hypertensive heart disease with heart failure (principal); I50.42 Chronic combined systolic (congestive) and diastolic (congestive) heart failure
CPT/HCPCS: 36415; 80053

== ENCOUNTER → 2024-03-27 | Outpatient (CLI) | payer OTHER ==
[2024-03-27 14:22] LABS: Chloride 94 mmol/L (98-107); Potassium 3.6 mmol/L (3.5-5.1); Sodium 133 mmol/L (136-145)
[2024-03-27 14:23] LABS: Anion Gap 9 (5-15); Calcium 9.7 mg/dL (8.7-10.4); Carbon Dioxide 30 mmol/L (20-31)
[2024-03-27 14:28] LABS: BUN/Creatinine Ratio 18.6 (10.0-20.0); Blood Urea Nitrogen 67 mg/dL (9-23); Glucose 111 mg/dL (74-106)
== END | disposition home or self-care (01) ==
LOC: LAB 13:50
PROVIDERS: ATTEND Internal Medicine
DX: I10 Essential (primary) hypertension (principal); F03.90 Unspecified dementia, unspecified severity, without behavioral disturbance, psychotic disturbance, mood disturbance, and anxiety
CPT/HCPCS: 36415; 80048